=== PATIENT | male | born 1955 | race Caucasian/White ===

== ENCOUNTER 2019-05-24 21:24 | Emergency (ER) | payer MEDICAID, MEDICARE ==
[2019-05-24] MEDS ORDERED: Lidocaine 1% 20 ML MDV INJECT ONE (21:57)
--- NOTE | 2019-05-24 21:58 | EDM.PDOC ---
ED HPI GENERAL MEDICAL PROBLEM - General Chief Complaint: Laceration Stated Complaint: LACERATION TO KNEE Time Seen by Provider: 05/24/19 21:58 Source of Information: Reports: Patient, Family History Limitations: Reports: No Limitations - History of Present Illness INITIAL COMMENTS - FREE TEXT/NARRATIVE: pt arrived after he fell and hit his head on a hitch of a trailer. He was not knocked out but he did get his cochran rung. He then hit his left knee on the hitch and he has 2--1 inch lacerations deep to the subq. He had good range of motion of his knee. Onset: Today, Sudden Duration: Hour(s): Location: Reports: Head, Lower Extremity, Left Associated Symptoms: Reports: No Other Symptoms left knee Pain Score (Numeric/FACES): 10 neck Pain Score (Numeric/FACES): 10 - Related Data Allergies Allergy/AdvReac Type Severity Reaction Status Date / Time No Known Allergies Allergy Verified 05/24/19 21:56 Home Meds: Home Meds . [Unable to Verify Home Med List] 05/24/19 [History] ED ROS GENERAL - Review of Systems Review Of Systems: See Below Constitutional: Reports: No Symptoms HEENT: Reports: No Symptoms Respiratory: Reports: No Symptoms Cardiovascular: Reports: No Symptoms Endocrine: Reports: No Symptoms GI/Abdominal: Reports: No Symptoms : Reports: No Symptoms Musculoskeletal: Reports: Other (laceration to left knee) Skin: Reports: No Symptoms Neurological: Reports: No Symptoms ED EXAM, SKIN/RASH Exam: See Below Text/Narrative:: pt is on coumadin and he did hit his head. He had a cat scan of the head which was neg. Exam Limited By: No Limitations General Appearance: Alert, Anxious, Mild Distress, Other (pupils are equal and reactive. ) Ears: Normal TMs Nose: Normal Inspection Throat/Mouth: Normal Inspection Head: Atraumatic, Other (no hematoma) Neck: Normal Inspection Respiratory/Chest: No Respiratory Distress Cardiovascular: Regular Rate, Rhythm GI/Abdominal: Soft, Non-Tender (Male) Exam: Deferred Extremities: Other (pt has 2 --1 inch laceration on the lateral aspect of the left knee. He had good range of motion of the knee. ) Neurological: Alert, Oriented Course - Vital Signs Last Recorded V/S: Last Vital Signs Temp 36.8 C 05/24/19 21:57 Pulse 56 L 05/24/19 21:57 Resp 16 05/24/19 21:57 BP 157/84 H 05/24/19 21:57 Pulse Ox 91 L 05/24/19 21:57 - Orders/Labs/Meds Orders: Active Orders 24 hr Category Date Time Status Vaccines to be Administered [RC] PER UNIT ROUTINE Care 05/24/19 23:28 Active Meds: Medications Discontinued Medications Generic Name Dose Route Start Last Admin Trade Name Cindi PRN Reason Stop Dose Admin Diphtheria/Tetanus/Acell Pertussis 0.5 ml 05/24/19 23:28 Adacel IM 05/24/19 23:29 .ONCE ONE Lidocaine HCl 20 ml 05/24/19 21:57 Xylocaine 1% INJECT 05/24/19 21:58 ONETIME ONE - Re-Assessments/Exams Free Text/Narrative Re-Assessment/Exam: 05/24/19 23:37 the wounds were infiltrated with lidocaine and scrubbed well. They were closed with 5-0 chromic ans 5 and 6 -0 prolene. the wound was dressed with a pressure dressing and bacatracin. Departure - Departure Time of Disposition: 23:25 Disposition: Home, Self-Care 01 Condition: Fair Clinical Impression: Laceration, Contusion of head - Discharge Information Referrals: PCP,None [Primary Care Provider] - Forms: ED Department Discharge Care Plan Goals: keep dry, no further ointments, cover with a dry dressing, suture removal in 7 -8 days. keflex 500mg tid to prevent infection - My Orders Last 24 Hours: My Active Orders 05/24/19 23:28 Vaccines to be Administered [RC] PER UNIT ROUTINE - Assessment/Plan Last 24 Hours: My Active Orders 05/24/19 23:28 Vaccines to be Administered [RC] PER UNIT ROUTINE
--- NOTE | 2019-05-24 22:52 | CRLCT ---
INDICATION: Head trauma, on anticoagulation TECHNIQUE: Head CT without contrast. COMPARISON: None FINDINGS: CSF spaces: Within normal limits for age. Brain parenchyma: There are nonspecific low attenuation white matter changes consistent with chronic microvascular disease. No sign of mass, hemorrhage, or midline shift. Skull base and calvarium: The visualized paranasal sinuses and mastoid air cells demonstrate no acute or significant findings. The visualized orbits are grossly unremarkable. No skull fractures. There is intracranial atherosclerosis. IMPRESSION: 1. No acute findings. 2. Nonspecific white matter disease, typical of chronic microvascular disease. Please note that all CT scans at this facility use dose modulation, iterative reconstruction, and/or weight-based dosing when appropriate to reduce radiation dose to as low as reasonably achievable. Dictated by Joie Estrada MD @ May 24 2019 10:49PM Signed by Dr. Joie Estrada @ May 24 2019 10:51PM
[2019-05-24] MEDS ORDERED: Diphtheria,Pertussis(Acell),Tetanus Vaccine 0.5 ML SDV IM ONE (23:28)
[2019-05-24] MEDS ORDERED: Bacitracin Oint 1 GM U/D Packet TOP ONE (23:34)
== END 2019-05-24 23:42 | disposition home or self-care (01) ==
LOC: JP.ED 21:24
DX: S81.012A Laceration without foreign body, left knee, initial encounter (principal); S00.93XA Contusion of unspecified part of head, initial encounter; Z23 Encounter for immunization; Z79.01 Long term (current) use of anticoagulants; W01.198A Fall on same level from slipping, tripping and stumbling with subsequent striking against other object, initial encounter
CPT/HCPCS: 12002; 70450; 90471; 90715; 99283; J2001